=== PATIENT | male | born 1990 | race Hispanic/Latino ===

== ENCOUNTER 2023-09-28 02:56 | Emergency (ER) | payer OTHER ==
--- OUTSIDE RECORDS SUMMARY | 2023-09-28 08:15 | XMS REPORT | Continuity of Care Document ---
Author Name Unknown Address [address] [facility] [place] [address] [facility] Address [address] [facility] [place] [address] Care Team Providers Care Financial Risk Manager Name Role Phone NO, PCP Primary Care Physician Unavailab le HENNY SCOTT Attending Clinician Unavailable HENNY SCOTT Admitting Clinician Unavailable Payers Payer Name Policy Type Policy Number Effective Date Expirati on Date Source 2 [id number] Allergies, Adverse Reactions, Alerts Allergy Name Allergy Type Status Severity Reaction(s) Onset Date Inactive Date Treating Clinician Comments Source No Known Allergie s NA Active 05-19 10:38: 44 Milvia Delarosa l No Known Allergie s NA Active 05-19 10:26: 27 Milvia lle Memoria l Vital Signs Vital Name Observation Time Observation Value Comments S ource HEIGHT 2023-05-25 18:06:13 .00 CM HEIGHT 2023-05-20 16:14:08 .00 CM DBP 2023-05-20 16:13:00 78 mm[Hg] HEIGHT 2023-05-20 10:40:14 .00 CM HEIGHT 2023-05-20 10:39:52 .00 CM WEIGHT 2023-05-20 10:39:51 86.180 KG DBP 2023-05-20 10:39:00 80 mm[Hg] Encounters Start Date/Time End Date/Time Encounter Type Admission Type Attending Clinicians Care Facility Care Department Encounter ID Source 2023-05-20 15:25:00 2023-05-20 21:13:00 Emergency Department Patient Visit [facility] [id number] [id number] 10:25:00 2023-05-20 16:13:00 Emergency 1 HENNY SCOTT [facility] [id number] Milvia guzman
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
[2023-09-29 01:00] VITALS: TEMP 98
[2023-09-29 01:04] VITALS: BP 118/62; O2SAT 99
--- NOTE | 2023-09-29 13:39 | RAD REPORT ---
EXAM DESCRIPTION: CT Head and Cervical Spine Without Intravenous Contrast CLINICAL HISTORY: The patient is 32 years old and is Male; TRAUMA TECHNIQUE: Axial computed tomography images of the head/brain and cervical spine without intravenous contrast. Sagittal and coronal reformatted images were created and reviewed. This CT exam was pe rformed using one or more of the following dose reduction techniques: automated exposure control, a djustment of the mA and/or kV according to patient size, and/or use of iterative reconstruction techn ique. COMPARISON: No relevant prior studies available. FINDINGS: Brain: Unremarkable. No hemorrhage. No significant white matter disease. No edema. Ventricles: Unremarkable. No ventriculomegaly. Skull: No acute fracture. Sinuses: Unremarkable as visualized. No acute sinusitis. Mastoid air cells: No significant mastoid fluid. Vertebrae: No acute cervical spine fracture visualized. Lateral alignment is maintained. Discs/spinal canal/neural foramina: C5-C6 degenerative disc disease with disc osteophyte complex and mild to moderate central canal stenosis. Disc bulges or shallow protrusions at C3-4 and C4-5. Soft tissues: Right scalp swelling. Pleural space: No pneumothorax. IMPRESSION: 1. No intracranial hemorrhage. No acute skull fracture. 2. Right scalp swelling. 3. No acute cervical spine fracture visualized. 4. C5-C6 degenerative disc disease with disc osteophyte complex and mild to moderate central canal stenosis. Electronically signed by: Raysa Cervantes MD 09/28/2023 04:54 AM CDT RP ND Due to temporary technical issues with the PACS/Fluency reporting system, reports are being signed by the in house radiologists without review as a courtesy to insure prompt reporting. The interpreting radiologist is fully responsible for the content of the report.
--- NOTE | 2023-09-29 13:41 | RAD REPORT ---
EXAM DESCRIPTION: CT Maxillofacial Without Intravenous Contrast CLINICAL HISTORY: The patient is 32 years old and is Male; TRAUMA TECHNIQUE: Axial computed tomography images of the face without intravenous contrast. Sagittal and coronal reformatted images were created and reviewed. This CT exam was performed using one or more of the following dose reduction techniques: automated exposure control, adjustment of the mA and/o r kV according to patient size, and/or use of iterative reconstruction technique. COMPARISON: No relevant prior studies available. FINDINGS: Bones/joints: No acute fracture visualized. Old fractures in the medial and inferior rig ht orbital green. Old nasal fractures. Soft tissues: Unremarkable. Orbits: Unremarkable. Sinuses: Mild mucosal thickening in the bilateral maxillary sinuses. No air-fluid levels. IMPRESSION: No acute fracture visualized. Old fractures in the medial and inferior right orbital wal ls. Electronically signed by: Raysa Cervantes MD 09/28/2023 04:40 AM CDT RP ND Due to temporary technical issues with the PACS/Fluency reporting system, reports are being signed by the in house radiologists without review as a courtesy to insure prompt reporting. The interpreting radiologist is fully responsible for the content of the report.
== END 2023-09-28 05:35 | disposition home or self-care (01) ==
LOC: ER 02:56
PROC: 0HQ1XZZ Repair Face Skin, External Approach (ICD-10-PCS; principal; 2023-09-28)
DX: S01.511A Laceration without foreign body of lip, initial encounter (principal); S60.222A Contusion of left hand, initial encounter
CPT/HCPCS: 12011; 70450; 70486; 72125; 76377; 96372; 99284